=== PATIENT | female | born 1940 | race Caucasian/White ===

== ENCOUNTER → 2016-04-28 | Outpatient (CLI) | payer MEDICARE ==
[~2016-04-28] MED LIST: ASPI-496 PO; ATOR10TA9 PO; BUSP5TAB2 PO; CALC-451 PO; FERR325T23 PO; GABA300C10 PO; HYDR-3138 PO; IRON PO; LEVO50TA5 PO; LEVO88TA4 PO; LISI-170 PO; MULT-516 PO; OMNIPAQUE 350 MG/ML, 75ML BOTTLE ONE; SENN1TAB67 PO; SIMPLY SALINE EACHEYE; TRAM50TA2 PO; VITAMIN B12 IM
== END | disposition home or self-care (01) ==
LOC: RAD 12:45
PROVIDERS: ATTEND Internal Medicine Critical Care Medicine
DX: J98.11 Atelectasis (principal); I70.0 Atherosclerosis of aorta; I25.10 Atherosclerotic heart disease of native coronary artery without angina pectoris; S22.068A Other fracture of T7-T8 thoracic vertebra, initial encounter for closed fracture; X58.XXXA Exposure to other specified factors, initial encounter; Y93.89 Activity, other specified; Y92.89 Other specified places as the place of occurrence of the external cause; Y99.8 Other external cause status
CPT/HCPCS: 71260; Q9967

== ENCOUNTER → 2016-06-12 | Outpatient (CLI) | payer MEDICARE ==
[~2016-06-12] MED LIST changes: -OMNIPAQUE 350 MG/ML, 75ML BOTTLE ONE
== END | disposition home or self-care (01) ==
LOC: CFH 09:45
PROVIDERS: ATTEND Internal Medicine Cardiovascular Disease
DX: M19.012 Primary osteoarthritis, left shoulder (principal); S22.060S Wedge compression fracture of T7-T8 vertebra, sequela; X58.XXXS Exposure to other specified factors, sequela; Z91.81 History of falling

== ENCOUNTER → 2019-10-02 | Outpatient (CLI) | payer MEDICARE ==
[~2019-10-02] MED LIST changes: +ALBU18HF INH; +CYAN-27 PO; +FLUT100D INH; +GABA-826 PO; -HYDR-3138 PO; +HYDR-3237 PO; +LISI2.5T PO; +MONT10TA6 PO; +ZOLE5INF IJ
[2019-10-02 11:06] LABS: BASOPHILS # (AUTO) 0.04 x10^3/uL (0-0.1); BASOPHILS % (AUTO) 1 % (0-1); EOSINOPHILS # (AUTO) 0.06 x10^3/uL (0-0.4); EOSINOPHILS % (AUTO) 1 % (1-7); LYMPHOCYTES % (AUTO) 16 % (22-44); MD NO; MEAN CORPUSCULAR HEMOGLOBIN 29.7 pg (27.0-34.8); MEAN CORPUSCULAR HGB CONC 32.4 g/dL (32.4-35.8); MEAN CORPUSCULAR VOLUME 91.6 fL (80-100); MEAN PLATELET VOLUME 7.7 fL (7.4-10.4); MONOCYTES # (AUTO) 0.65 x10^3/uL (0.2-0.8); MONOCYTES % (AUTO) 9 % (2-9); NEUTROPHILS # (AUTO) 5.17 x10^3/uL (1.8-6.8); NEUTROPHILS % (AUTO) 74 % (42-75); PLATELET COUNT 329 x10^3/uL (130-400); RED BLOOD COUNT 4.67 x10^6/uL (3.82-5.3)
[2019-10-02 11:15] LABS: ALANINE AMINOTRANSFERASE 19 U/L (12-78); ALBUMIN 3.8 g/dL (3.4-5.0); ANION GAP 7 mmol/L (5-15); CALCIUM 9.2 mg/dL (8.5-10.1); CHLORIDE 106 mmol/L (98-107); CREATININE 0.72 mg/dL (0.55-1.02)
[2019-10-02 11:41] LABS: ALKALINE PHOSPHATASE 72 U/L (45-117); BILIRUBIN,TOTAL 0.6 mg/dL (0.2-1.0); TOTAL PROTEIN 7.6 g/dL (6.4-8.2)
== END | disposition home or self-care (01) ==
LOC: STAR 08:16
PROVIDERS: ATTEND Surgery
DX: Z01.812 Encounter for preprocedural laboratory examination (principal); Z20.828 Contact with and (suspected) exposure to other viral communicable diseases
CPT/HCPCS: 36415; 80053; 82607; 85025; 87635; 93005

== ENCOUNTER 2019-10-06 07:12 | Observation (INO) | payer MEDICARE ==
[~2019-10-06] VITALS: Ht 157.5 cm; Wt 67.0 kg
[~2019-10-06 07:12] MED LIST changes: +BUPIVACAINE/EPI 0.5% 1:200K ONE; +ISOSULFAN BLUE 10 MG/ML, 5ML IV ONE
[2019-10-06] MEDS ORDERED: CHLORHEXIDINE 15 ML UDC ONE (07:53)
[2019-10-06] MEDS ORDERED: LACTATED RINGERS 1,000 ML IV SCH (09:01)
[2019-10-06] MEDS ORDERED: CHLORHEXIDINE 15 ML UDC MM STA (09:02)
[2019-10-06] MEDS ORDERED: FENTANYL PF 250 MCG/5ML ONE (09:03)
[2019-10-06] MEDS ORDERED: hydrALAzine 20 MG/ML, 1ML IV PRN (09:30)
[2019-10-06] MEDS ORDERED: MEPERIDINE/PF 25MG/0.5ML IVPush PRN (09:30)
[2019-10-06] MEDS ORDERED: LABETALOL 5MG/ML, 20ML IV PRN (09:30)
[2019-10-06] MEDS ORDERED: HALOPERIDOL 5 MG/ML IV PRN (09:30)
[2019-10-06] MEDS ORDERED: HYDROmorphone 1 MG/ML, 1ML INJ IVPush PRN (09:30)
[2019-10-06] MEDS ORDERED: PROMETHAZINE 25 MG/ML, 1ML IVPush PRN (09:30)
[2019-10-06] MEDS ORDERED: HYDROcodone/APAP 7.5-325MG/15ML UDC PO PRN (09:30)
[2019-10-06] MEDS ORDERED: DIPHENHYDRAMINE 50 MG/ML, 1ML IVPush PRN (09:30)
[2019-10-06] MEDS ORDERED: HEPARIN 1,000 UNITS/ML, 10ML ONE (10:18)
[2019-10-06] MEDS ORDERED: CLINDAMYCIN 150 MG/ML, 6ML ONE (10:47)
[2019-10-06] MEDS ORDERED: GLYCOPYRROLATE 0.2MG/1ML, 5ML ONE (11:54)
[2019-10-06] MEDS ORDERED: ONDANSETRON 2MG/ML, 2ML ONE (11:54)
[2019-10-06] MEDS ORDERED: NEOSTIGMINE 1 MG/ML, 10ML ONE (11:54)
[2019-10-06] MEDS ORDERED: SUCCINYLCHOLINE 20 MG/ML, 10ML ONE (11:54)
[2019-10-06] MEDS ORDERED: CEFAZOLIN 1,000 MG ONE (11:54)
[2019-10-06] MEDS ORDERED: PROPOFOL 10 MG/ML, 20ML ONE (11:54)
[2019-10-06] MEDS ORDERED: DEXAMETHASONE 4 MG/ML, 1ML ONE (11:54)
[2019-10-06] MEDS ORDERED: ROCURONIUM 10MG/ML,5ML ONE (11:54)
[2019-10-06] MEDS ORDERED: HYDROcodone/APAP 7.5-325MG/15ML UDC ONE (12:21)
[2019-10-06] MEDS ORDERED: FENTANYL PF 100 MCG/2ML ONE (12:22)
[2019-10-06] MEDS: FENTANYL PF 100 MCG/2ML IV PRN ×2 (12:30→12:45)
[2019-10-06] MEDS ORDERED: PROMETHAZINE 25 MG/ML, 1ML ONE (12:59)
[2019-10-06] MEDS ORDERED: ONDANSETRON 2MG/ML, 2ML IVPush PRN (15:00)
[2019-10-06] MEDS ORDERED: HYDROcodone/APAP 5/325 TABLET PO PRN (15:00)
[2019-10-06] MEDS ORDERED: MORPHINE SULFATE 4 MG/ML, 1ML IVPush PRN (15:00)
[2019-10-06] MEDS: ALBUTEROL HFA 90 MCG/SPRAY INH PRN ×2 (15:53→22:04)
[2019-10-06] MEDS ORDERED: SODIUM CHLORIDE NASAL SPRAY 45ML BOTTLE NAS PRN (16:00)
[2019-10-06] MEDS: LACTATED RINGERS 1,000 ML IV SCH (18:00)
[2019-10-06 18:35] VITALS: BP 104/65
[2019-10-06] MEDS: ATORVASTATIN 10 MG TABLET PO SCH ×2 (20:01→20:04)
[2019-10-06] MEDS: BUSPIRONE 5 MG TABLET PO SCH (20:01)
[2019-10-06] MEDS ORDERED: GABAPENTIN 100 MG CAPSULE PO SCH (21:00)
[2019-10-06 21:05] VITALS: BP 133/61
[2019-10-07 00:41] VITALS: BP 106/69
[2019-10-07 04:50] VITALS: BP 103/63
[2019-10-07] MEDS ORDERED: LEVOTHYROXINE 88 MCG TABLET PO SCH (06:00)
[2019-10-07] MEDS: LACTATED RINGERS 1,000 ML IV SCH (06:17)
[2019-10-07 06:50] VITALS: BP 95/62
[2019-10-07] MEDS: BUSPIRONE 5 MG TABLET PO SCH (08:09)
[2019-10-07] MEDS ORDERED: CYANOCOBALAMIN 1,000 MCG TABLET PO SCH (09:00)
[2019-10-07] MEDS ORDERED: SENNA/DOCUSATE TABLET PO SCH (09:00)
[2019-10-07] MEDS ORDERED: MULTIVITAMIN 1 TABLET PO SCH (09:00)
[2019-10-07] MEDS ORDERED: ACETAMINOPHEN 325 MG TABLET PO ONE (09:00)
[2019-10-07] MEDS ORDERED: MONTELUKAST 10 MG TABLET PO SCH (09:00)
[2019-10-07] MEDS ORDERED: CALCIUM/VITAMIN D3 250-125 TABLET PO SCH (09:00)
[2019-10-07] MEDS ORDERED: LISINOPRIL 5 MG TABLET PO SCH (09:00)
[2019-10-07] MEDS ORDERED: HYDR-3240 PO (10:16)
== END 2019-10-07 12:35 | disposition home or self-care (01) ==
LOC: OUT 07:12 → EDSTATUS 10:00 → 4NE 14:30 → OUT 21:56 → 4NE 23:18 → INTOOBSV 23:18 → DCLOUNGE 10-07 12:18
PROVIDERS: ADMIT Surgery; ATTEND Surgery
DX: C50.912 Malignant neoplasm of unspecified site of left female breast (principal); M19.90 Unspecified osteoarthritis, unspecified site; I10 Essential (primary) hypertension; E78.5 Hyperlipidemia, unspecified; E03.9 Hypothyroidism, unspecified; G40.909 Epilepsy, unspecified, not intractable, without status epilepticus; I48.91 Unspecified atrial fibrillation; I71.4 Abdominal aortic aneurysm, without rupture; J45.909 Unspecified asthma, uncomplicated; Z88.0 Allergy status to penicillin; Z79.899 Other long term (current) drug therapy; Z87.891 Personal history of nicotine dependence; Z90.13 Acquired absence of bilateral breasts and nipples
CPT/HCPCS: 19303; 36561; 38525; 38792; 77001; 88307; 88333; A9541; C1729; C1788; G0378; J0330; J1100; J1644; J2405; J2550; J2704; J3010; S0077; 88305; J0690; J2710

== ENCOUNTER 2019-10-08 08:04 | Emergency (ER) | payer MEDICARE ==
[~2019-10-08] VITALS: Ht 157.5 cm; Wt 68.3 kg
[~2019-10-08 08:04] MED LIST changes: -BUPIVACAINE/EPI 0.5% 1:200K ONE; +HYDR-3240 PO; -ISOSULFAN BLUE 10 MG/ML, 5ML IV ONE
[2019-10-08 08:09] VITALS: BP 134/77
--- NOTE | 2019-10-08 08:28 | NUR ---
MANDO RN: PT S/P THERESE MASTECTOMY 10/05 HERE TODAY WITH QUESTIONS RE: CARE OF HER RAZA DRAINS, CHEST BINDINGS AND DRESSINGS. I REVIEWED RAZA CARE WITH PT AND HAD PT GIVE RETURN DEMONSTRATION ON BULB DRAINAGE, MILKING THE LINES, AND RECOMPRESSING THE BULBS. PT UNSURE OF CARE OF THE CHEST BINDER WHICH HAS SLIPPED DOWN. I TOLD PT WE WOULD CONTACT DR FREDERICK OFFICE TO CLARIFY.
--- NOTE | 2019-10-08 09:10 | NUR ---
TASK RN: SPOKE WITH DR AMARO. PT MAY REMOVE BERNADINE WRAP PERIODICALLY FOR COMFORT. SHE CAN TAKE SPONGE BATH BUT SHOULD KEEP INCISIONS DRY. CONTINUE TO MAINTAIN RAZA DRAINS INSTRUCTED. I REALYED THIS INFORMATION TO DANIELLE CHRISTIANSON AND LEONARD BHAKTA. LIVIA WILL REVIEW WITH PT AND HAVE PT GIVE HER A RETURN DEMONSTRATION OF RAZA DRAIN MAINTENANCE ONE MORE TIME PRIOR TO D/C.
[2019-10-08] MEDS ORDERED: ONDANSETRON ODT 4 MG PO ONE (09:30)
[2019-10-08] MEDS ORDERED: MORPHINE SULFATE 4 MG/ML, 1ML IVPush PRN (09:30)
[2019-10-08] MEDS ORDERED: KETOROLAC 30 MG/1 ML IVPush ONE (09:30)
--- NOTE | 2019-10-08 09:31 | NUR ---
PT DEMONSTRATED SUCCESSFULLY HOW TO MILK LINE AND DRAIN RAZA AND INTRODUCE SUCTION
== END 2019-10-08 09:32 | disposition home or self-care (01) ==
LOC: ED 08:45
DX: Z90.13 Acquired absence of bilateral breasts and nipples (principal); Z85.9 Personal history of malignant neoplasm, unspecified
CPT/HCPCS: 99284

== ENCOUNTER 2019-10-11 10:02 | Emergency (ER) | payer MEDICARE ==
[~2019-10-11] VITALS: Ht 157.5 cm; Wt 63.6 kg
--- NOTE | 2019-10-11 10:25 | NUR ---
DOUBLE MASTECTOMY ON SUNDAY NOW HAVING SOME BLOODY DRAINAGE ON THE RIGHT BREAST.PT IN BED WITH CONT RESIDENTIAL PROGRAM COORDINATOR, SPO2, BP Q 30 MIN, FAMILY AT BEDSIDE. DRESSING OVER BOTH BREASTS WITH DRAINAGE ON THE RIGHT SIDE. REPORTS NO PAIN AT THIS TIME.
[2019-10-11] MEDS ORDERED: SODIUM CHLORIDE FLUSH 10ML SYR IVF ONE (10:30)
[2019-10-11] MEDS ORDERED: PLEASE ENTER HEIGHT AND WEIGHT MC SCH (10:30)
[2019-10-11 10:40] LABS: BASOPHILS # (AUTO) 0.04 x10^3/uL (0-0.1); BASOPHILS % (AUTO) 0 % (0-1); EOSINOPHILS # (AUTO) 0.38 x10^3/uL (0-0.4); EOSINOPHILS % (AUTO) 3 % (1-7); INTERNATIONAL NORMALIZED RATIO 0.96 (0.93-1.1); LYMPHOCYTES # (AUTO) 1.42 x10^3/uL (1-3.4); LYMPHOCYTES % (AUTO) 11 % (22-44); MD NO; MEAN CORPUSCULAR HEMOGLOBIN 30.1 pg (27.0-34.8); MEAN CORPUSCULAR VOLUME 91.2 fL (80-100); MEAN PLATELET VOLUME 7.6 fL (7.4-10.4); MONOCYTES # (AUTO) 0.92 x10^3/uL (0.2-0.8); MONOCYTES % (AUTO) 7 % (2-9); NEUTROPHILS # (AUTO) 10.46 x10^3/uL (1.8-6.8); NEUTROPHILS % (AUTO) 79 % (42-75); PLATELET COUNT 365 x10^3/uL (130-400); PROTHROMBIN TIME 9.9 Seconds (9.6-11.5); RED BLOOD COUNT 4.06 x10^6/uL (3.82-5.3); RED CELL DISTRIBUTION WIDTH 13.7 % (9.6-15.2)
[2019-10-11 10:44] LABS: ALBUMIN 3.2 g/dL (3.4-5.0); ANION GAP 5 mmol/L (5-15); CALCIUM 9.3 mg/dL (8.5-10.1); CHLORIDE 108 mmol/L (98-107)
[2019-10-11 10:45] LABS: CREATININE 0.72 mg/dL (0.55-1.02)
[2019-10-11 11:50] VITALS: BP 124/74
== END 2019-10-11 11:52 | disposition home or self-care (01) ==
LOC: ED 10:51
DX: L76.82 Other postprocedural complications of skin and subcutaneous tissue (principal); I10 Essential (primary) hypertension; E78.5 Hyperlipidemia, unspecified; I48.91 Unspecified atrial fibrillation; Z87.891 Personal history of nicotine dependence; Z90.89 Acquired absence of other organs
CPT/HCPCS: 36415; 80048; 82040; 85025; 85610; 86850; 86900; 99283

== ENCOUNTER 2020-09-14 10:17 | Emergency (ER) | payer MEDICARE ==
[~2020-09-14] VITALS: Ht 154.9 cm; Wt 58.1 kg
[~2020-09-14 10:17] MED LIST changes: -FLUT100D INH; +FLUT100D2 INH; +HYDR-2214 PO; -HYDR-3240 PO
--- NOTE | 2020-09-14 10:50 | NUR ---
publisher assistant: Pt ambulatory to room from lobby at this time.
[2020-09-14] MEDS ORDERED: SODIUM CHLORIDE FLUSH 10ML SYR IVF ONE (11:00)
[2020-09-14] MEDS ORDERED: VANCOMYCIN PER PHARMACY MC ONE (11:00)
[2020-09-14] MEDS ORDERED: HYDROmorphone 1 MG/ML, 1ML INJ IVPush PRN (11:00)
[2020-09-14] MEDS ORDERED: CEFTRIAXONE 1,000 MG in DEXTROSE 5% 50 ML IVPB ONE (11:00)
[2020-09-14] MEDS ORDERED: ONDANSETRON 2MG/ML, 2ML IVPush ONE (11:00)
[2020-09-14 11:22] LABS: BASOPHILS % (AUTO) 1 % (0-1); EOSINOPHILS % (AUTO) 1 % (1-7); LYMPHOCYTES % (AUTO) 15 % (22-44); MEAN CORPUSCULAR HEMOGLOBIN 29.2 pg (27.0-34.8); MEAN PLATELET VOLUME 7.2 fL (7.4-10.4); MONOCYTES % (AUTO) 8 % (2-9); NEUTROPHILS % (AUTO) 74 % (42-75); PLATELET COUNT 335 x10^3/uL (130-400); RED CELL DISTRIBUTION WIDTH 14.7 % (9.6-15.2)
--- NOTE | 2020-09-14 11:26 | NUR ---
PT IN GOWN IN [facility]. LAB AT . PT ATTACHED TO VS AND CARDIAC MONITORS. VSS AT THIS TIME. PT EDUCATED ON ER PROCESS AND POC AND VERBALIZES UNDERSTANDING. BC X 1 OBTAINED BY LAB.
--- NOTE | 2020-09-14 11:44 | NUR ---
PT REFUSES MEDS PER MAR AT THIS TIME.
[2020-09-14 11:45] LABS: ALBUMIN 3.5 g/dL (3.4-5.0); ANION GAP 5 mmol/L (5-15); CALCIUM 9.4 mg/dL (8.5-10.1); CHLORIDE 105 mmol/L (98-107)
[2020-09-14 11:50] LABS: ALANINE AMINOTRANSFERASE 14 U/L (12-78); ALKALINE PHOSPHATASE 82 U/L (45-117); BILIRUBIN,TOTAL 0.4 mg/dL (0.2-1.0); CREATININE 0.71 mg/dL (0.55-1.02); TOTAL PROTEIN 7.9 g/dL (6.4-8.2); TROPONIN I < 0.015 ng/mL (0.000-0.045)
--- NOTE | 2020-09-14 11:51 | NUR ---
PT VSS AND UPDATED IN EMR.
[2020-09-14 14:28] VITALS: BP 154/91
--- NOTE | 2020-09-14 14:28 | NUR ---
pt d/c with d/c summary and scripts. pt questions answered. pt ambulates to registration desk with steady gait for d/c home and denies any other needs pertaining to this visit.
== END 2020-09-14 14:33 | disposition home or self-care (01) ==
LOC: ED 14:25
DX: L03.114 Cellulitis of left upper limb (principal); M25.522 Pain in left elbow; Z85.3 Personal history of malignant neoplasm of breast; R50.9 Fever, unspecified; E78.5 Hyperlipidemia, unspecified; I10 Essential (primary) hypertension; I48.91 Unspecified atrial fibrillation; Z90.89 Acquired absence of other organs; Z88.0 Allergy status to penicillin
CPT/HCPCS: 36415; 71045; 80053; 83605; 84484; 85025; 87040; 93005; 99285